=== PATIENT | female | born 1990 | race Hispanic/Latino ===

== ENCOUNTER 2018-01-21 19:08 | Emergency (ER) | payer OTHER ==
[2018-01-21 19:08] VITALS: BMI 21.9
[2018-01-21 19:46] VITALS: BP 106/65; PULSE 78; RESP 16; TEMP 98.1; O2SAT 98
--- NOTE | 2018-01-21 20:15 | ED PDOC ---
HPI: Eye Injury/Pain Time Seen by Provider: 01/21/18 20:00 Chief Complaint (Nursing): Eye Problem Chief Complaint (Provider): left eye lump History Per: Patient, Family History/Exam Limitations: no limitations Onset/Duration Of Symptoms: Days (2) Current Symptoms Are (Timing): Still Present Quality: Burning Additional Complaint(s): 27 y/o female presents with painful lump to left lower eyelid x 2 days. Patient describes pain as "burning". Denies fever, headache, dizziness, vision changes, drainage from eye. Past Medical History Reviewed: Historical Data, Nursing Documentation, Vital Signs Vital Signs: Last Vital Signs Temp 98.1 F 01/21/18 19:43 Pulse 78 01/21/18 19:43 Resp 16 01/21/18 19:43 BP 106/65 01/21/18 19:43 Pulse Ox 98 01/21/18 19:43 - Medical History PMH: No Chronic Diseases - Surgical History Surgical History: Appendectomy, - Family History Family History: States: No Known Family Hx - Living Arrangements Living Arrangements: With Family - Allergies Allergies/Adverse Reactions: Allergies Allergy/AdvReac Type Severity Reaction Status Date / Time No Known Allergies Allergy Verified 12/18/17 13:02 Review of Systems ROS Statement: Except As Marked, All Systems Reviewed And Found Negative Eyes: Positive for: Pain Physical Exam - Reviewed Nursing Documentation Reviewed: Yes Vital Signs Reviewed: Yes - Physical Exam Appears: Positive for: Well, Non-toxic, No Acute Distress Head Exam: Positive for: ATRAUMATIC, NORMAL INSPECTION, NORMOCEPHALIC Skin: Positive for: Normal Color Eye Exam: Positive for: EOMI, PERRL, Other (erythematous tender lump noted left external lower lid; no drainage, surrounding edema/erythema noted). Negative for: Periorbital swelling, Periorbital tenderness, Conjunctival injection Extremity: Positive for: Normal ROM Neurologic/Psych: Positive for: Alert, Oriented - ECG O2 Sat by Pulse Oximetry: 98 - Progress ED Course And Treament: Patient/family educated on findings, advised warm compresses to affected area and no eye makeup Advised follow up optho Return precautions given. Disposition - Clinical Impression Clinical Impression: Hordeolum externum left lower eyelid - Disposition Referrals: Benja Huizar MD [Staff Provider] - Disposition Time: 20:16 Condition: GOOD Additional Instructions: Apply warm compresses to affected area 4 times daily Do not wear eye make up. Throw away current eye make up Instructions: Tamela ([place]) Forms: [email or web address] ([place])
== END 2018-01-21 21:37 | disposition home or self-care (01) ==
LOC: H.ER 19:08
DX: H00.015 Hordeolum externum left lower eyelid (principal)